=== PATIENT | male | born 1975 | race Caucasian/White ===

== ENCOUNTER 2016-12-25 21:08 | Emergency (ER) | payer SELFPAY ==
[~2016-12-25] VITALS: Ht 188 cm; Wt 107.0 kg
[~2016-12-25 21:08] MED LIST: LORT5TAB PO; Z.0.NO CURRENT MEDS
[2016-12-25 21:15] VITALS: BP 144/79; PULSE 91; RESP 18; TEMP 98.4; O2SAT 96
--- NOTE | 2016-12-25 21:35 | PD ---
HPI Chief Complaint: Fall Time Seen by Provider: 21:35 Travel History International Travel<30 days: No Contact w/Intl Traveler<30days: No Traveled to known affect area: No History of Present Illness HPI 41-year-old male is brought to the emergency department by EMS for evaluation of fall. The patient states that he sat in a chair at a [employer] store and the leg of the chair broke causing him to fall backward onto the ground. States that he landed on his lower back and attempted to catch himself with his left hand. States that he did hit the back of his head on the tile floor. Denies loss of consciousness. States that he is having pain in his neck, lower back, left thumb and left heel. States he is having a tingling sensation in his lower back. Denies any numbness or tingling in the extremities, weakness, headache, dizziness, nausea, vomiting, saddle anesthesia, bowel or bladder incontinence. Denies any prior back injuries or problems. Denies any medical conditions. No other complaints. [facility] Past Medical History Medical History: Denies Significant Hx Tetanus Vaccination: < 5 Years Influenza Vaccination: No Past Surgical History Surgical History: No Previous Surgery Social History Alcohol Use: No Tobacco Use: Yes Substance Use: No Allergies-Medications (Allergen,Severity, Reaction): Coded Allergies: No Known Allergies (Verified , 11/19/08) Reported Meds & Prescriptions Reported Meds & Active Scripts Active No Active Prescriptions or Reported Medications Review of Systems Except as stated in HPI: all other systems reviewed are Neg Physical Exam Narrative GENERAL: Well-nourished and well-developed pleasant male patient in no acute distress. Backboarded with cervical collar in place. SKIN: No obvious lacerations or abrasions noted. HEAD: Normocephalic and atraumatic. No bony point tenderness or crepitus noted throughout the scalp and facial bones. EYES: No scleral icterus, injection, or drainage. PERRLA. EOMI. No hyphema present. ENT: No septal hematoma or hemotympanum noted. Oropharynx is clear and the airway is patent. NECK: Supple and the trachea is midline. No obvious deformities, crepitus, or midline tenderness noted. CARDIOVASCULAR: Regular rate and rhythm. RESPIRATORY: Breath sounds are equal bilaterally with no accessory muscle use, wheezing, rhonchi, or crackles. GASTROINTESTINAL: Abdomen is soft, non-tender, and nondistended. MUSCULOSKELETAL: Slight swelling to left thumb MCP, full range of motion. Tenderness to palpation of left heel, no swelling or deformity. No obvious deformities, cyanosis, or ecchymosis is present throughout the upper and lower extremities. Patient has full range of motion without any signs of neurovascular compromise. Strength 5/5 upper and lower extremities equal bilaterally. BACK: Midline lumbar spine tenderness to palpation. No obvious deformities, bony point tenderness, or crepitus noted throughout the thoracic and lumbar vertebrae. NEUROLOGICAL: Awake, alert, and oriented. Normal speech and gait. Cranial nerves are grossly intact. Data Data Last Documented VS Vital Signs Date Time Temp Pulse Resp B/P Pulse Ox O2 Delivery O2 Flow Rate FiO2 12/25/16 21:20 92 18 96 12/25/16 21:15 98.4 144/[address] Brain W/O Iv Contrast(Rout) (12/25/16 21:33) Ct Lumb Spine W/O Contrast (12/25/16 21:33) Ct Cerv Spine W/O Contrast (12/25/16 21:33) Foot, Complete ([id number]) (12/25/16 21:33) Hand, Complete ([id number]) (12/25/16 21:33) Acetamin-Hydrocod 325-5 Mg ([place] 5-325 (12/25/16 21:45) MDM Medical Decision Making Medical Screen Exam Complete: Yes Emergency Medical Condition: Yes Differential Diagnosis Contusion versus muscle strain versus muscle spasm versus discogenic pain versus fracture Narrative Course 41-year-old male is brought to the emergency department by EMS for evaluation of fall from a chair while at a [employer] store. Patient is afebrile, vital signs are stable. He is complaining of pain in his neck, back, left thumb and left heel. No focal neurologic deficits. CT and x-ray imaging as been ordered and is pending. Patient is administered Lortab 5325 milligrams orally for his pain. X-ray of the left foot is negative for any acute abnormalities. X-ray left hand is negative for any acute abnormalities. The patient will be signed out to my attending physician Dr. Clay pending results of CT imaging. Scripts No Active Prescriptions or Reported Meds Bhavna Dove Dec 25, 2016 21:35
[2016-12-25] MEDS ORDERED: ACETAMINOPHEN/HYDROcodone 325 MG/5 MG TAB PO ONE (21:45)
--- NOTE | 2016-12-25 22:20 | RADRPT ---
EXAM DATE/TIME: 12/25/2016 21:43 [facility] COMPARISON: No previous studies available for comparison. INDICATIONS : Fall out of lawn chair. MEDICAL HISTORY : None. SURGICAL HISTORY : None. ENCOUNTER: Initial ACUITY: 1 day PAIN SCORE: 0/10 LOCATION: Left foot FINDINGS: Three views of the left foot demonstrate no fracture or dislocation. The Lisfranc joint appears intac t. Mineralization is within normal limits and there is no significant arthropathy. No soft tissue abn ormality or radiopaque foreign body is identified. CONCLUSION: No acute abnormality is identified. Clint Hernandez MD on December 25, 2016 at 22:17 Board Certified Radiologist. This report was verified electronically.
--- NOTE | 2016-12-25 22:24 | RADRPT ---
EXAM DATE/TIME: 12/25/2016 21:49 [facility] COMPARISON: No previous studies available for comparison. INDICATIONS : Fall. MEDICAL HISTORY : None. SURGICAL HISTORY : None. ENCOUNTER: Initial ACUITY: 1 day PAIN SCORE: 0/10 LOCATION: Left hand FINDINGS: Three views of the left hand demonstrate no fracture or dislocation. Mineralization is within normal limits and there is no significant arthropathy. No soft tissue abnormality or radiopaque foreign body is identified. CONCLUSION: No acute abnormality is identified. Clint Hernandez MD on December 25, 2016 at 22:21 Board Certified Radiologist. This report was verified electronically.
--- NOTE | 2016-12-25 23:05 | PD ---
Data Data Last Documented VS Vital Signs Date Time Temp Pulse Resp B/P Pulse Ox O2 Delivery O2 Flow Rate FiO2 12/25/16 21:20 92 18 96 12/25/16 21:15 98.4 144/[address] Brain W/O Iv Contrast(Rout) (12/25/16 21:33) Ct Lumb Spine W/O Contrast (12/25/16 21:33) Ct Cerv Spine W/O Contrast (12/25/16 21:33) Foot, Complete ([id number]) (12/25/16 21:33) Hand, Complete ([id number]) (12/25/16 21:33) Acetamin-Hydrocod 325-5 Mg ([place] 5-325 (12/25/16 21:45) MDM Medical Record Reviewed: Yes Supervised Visit with GENOVEVA: No Interpretation(s) Last Impressions Lumbar Spine CT 12/25/162132 Signed Impressions: Service Date/Time: Sunday, December 25, 2016 22:57 - CONCLUSION: Intact lumbar spine. Mild degenerative changes at L4/L5 and L5/S1 as above. Clint Sanchez MD Head CT 12/25/162132 Signed Impressions: Service Date/Time: Sunday, December 25, 2016 22:54 - CONCLUSION: No bleed or other acute intracranial abnormality demonstrated. Chronic-appearing sinus disease. Clint Sanchez MD Hand X-Ray 12/25/162132 Signed Impressions: Service Date/Time: Sunday, December 25, 2016 21:49 - CONCLUSION: No acute abnormality is identified. Clint Hernandez MD Foot X-Ray 12/25/162132 Signed Impressions: Service Date/Time: Sunday, December 25, 2016 21:43 - CONCLUSION: No acute abnormality is identified. Clint Hernnadez MD Cervical Spine CT 12/25/162132 Signed Impressions: Service Date/Time: Sunday, December 25, 2016 22:54 - CONCLUSION: 1. No fracture or subluxation of the cervical spine. 2. Suspected inferiorly extruded right paracentral disc fragment at C3/C4, age-indeterminate. Associated spinal and right foraminal stenosis appears to be mild. 3. Chronic appearing degenerative changes otherwise, as above. Clint Sanchez MD Narrative Course During the course of the patients emergency department visit, the patients history, examination, and differential diagnosis were reviewed with the patient. The patient was initially evaluated by Bhavna, please see her complete history and physical. The patient's case was checked out to me at the conclusion of her shift pending CT scans being resulted. The patient was initially provided Lortab for pain. Radiology studies were reviewed and remarkable for a [id number] x-ray that showed no acute abnormality. CT scan of the brain showed no acute abnormality. CT scan of the C-spine shows no fracture or subluxation of the cervical spine , suspected inferiorly extruded right paracentral disc fragment at C3 for age indeterminate, associated spinal and right foraminal stenosis appears to be mild , chronic-appearing degenerative changes. CT scan of lumbar spine shows mild degenerative changes at L4-L5 and L5-S1. No other acute abnormality. The patient will be provided a prescription for Naprosyn and Flexeril. The patient is resting comfortably and feels better, is alert and in no distress. The patients results and examination findings were discussed with the patient. The repeat examination is unremarkable and benign. The history, exam, diagnostic testing, and current condition do not suggest any significant pathology to warrant further testing, continued ED treatment, admission, or surgical evaluation at this point. The vital signs have been stable. The patient does not have uncontrollable pain, intractable vomiting, or other significant symptoms. The patient's condition is stable and appropriate for discharge. The patient will pursue further outpatient evaluation with a primary care physician or other designated or consulting physician as indicated in the discharge instructions. The patient expressed understanding and was agreeable with this plan. Diagnosis Primary Impression: Degenerative disc disease, cervical Additional Impression: Degenerative disc disease, lumbar Referrals: Sergei Crain MD 2 weeks Primary Care Physician 2 days Patient Instructions: Back Pain (ED), General Instructions Additional Instruction: Follow-up with the neurosurgeon on-call for additional evaluation if he continued to have symptoms. Med/Other Pt SpecificInfo: Prescription(s) given Scripts Cyclobenzaprine (Flexeril)5 Mg Tab5 Mg PO TID PRN (SPASM) #15 TAB Ref 0 Prov:Susan Clay MD 12/25/[address] (EC-Naprosyn)500 Mg [id number] Mg PO BID PRN (PAIN GREATER THAN 5) # 10 TAB Ref 0 Prov:Susan Clay MD 12/25/16 Disposition: 01 DISCHARGE HOME Condition: Stable Susan Clay MD Dec 25, 2016 23:05
--- NOTE | 2016-12-25 23:15 | RADRPT ---
EXAM DATE/TIME: 12/25/2016 22:54 [facility] COMPARISON: No previous studies available for comparison. INDICATIONS : Fell from chair. Lower back and neck pain. RADIATION DOSE: 56.73 CTDIvol (mGy) MEDICAL HISTORY : None SURGICAL HISTORY : None. ENCOUNTER: Initial ACUITY: 1 day PAIN SCALE: 6/10 LOCATION: cranial TECHNIQUE: Multiple contiguous axial images were obtained of the head. Using automated exposure control and adj ustment of the mA and/or kV according to patient size, radiation dose was kept as low as reasonably a chievable to obtain optimal diagnostic quality images. FINDINGS: CEREBRUM: The ventricles are normal for age. No evidence of midline shift, mass lesion, hemorrhage or acute in farction. No extra-axial fluid collections are seen. POSTERIOR FOSSA: The cerebellum and brainstem are intact. The 4th ventricle is midline. The cerebellopontine angle i s unremarkable. EXTRACRANIAL: The visualized portion of the orbits is intact. There is mucoperiosteal thickening of the visualized ethmoid air cells. SKULL: The calvaria is intact. No evidence of skull fracture. CONCLUSION: No bleed or other acute intracranial abnormality demonstrated. Chronic-appearing sinus disease. Clint Sanchez MD on December 25, 2016 at 23:12 Board Certified Radiologist. This report was verified electronically.
--- NOTE | 2016-12-25 23:24 | RADRPT ---
EXAM DATE/TIME: 12/25/2016 22:54 [facility] COMPARISON: No previous studies available for comparison. INDICATIONS : Fell from chair. Lower back and neck pain. RADIATION DOSE: 21.62 CTDIvol (mGy) MEDICAL HISTORY : None SURGICAL HISTORY : None. ENCOUNTER: Initial ACUITY: 1 day PAIN SCALE: 4/10 LOCATION: neck TECHNIQUE: Volumetric scanning of the cervical spine was performed. Multiplanar reconstructions in the sagittal, coronal and oblique axial planes were performed. Using automated exposure control and adjustment o f the mA and/or kV according to patient size, radiation dose was kept as low as reasonably achievable to obtain optimal diagnostic quality images. FINDINGS: VERTEBRAE: Normal vertebral body height. ALIGNMENT: No evidence of subluxation. C2-C3: The bony spinal canal is normal in size. No evidence of disc bulge or herniation. The neural forami na are bilaterally patent. C3-C4: There is mild disc space narrowing. The CT suggests the possibility of a inferiorly extruded right pa racentral fragment of the C3/C4 disc. There is however only mild spinal and right foraminal stenosis. C4-C5: The disc has mild loss of height. There is mild uncovertebral and facet osteoarthritis. No significan t foraminal or spinal stenosis. C5-C6: The disc as mild loss of height. There is moderate bilateral uncovertebral and facet osteoarthritis. Mild foraminal stenosis, mainly on the right. C6-C7: The disc has mild loss of height. There is mild bilateral uncovertebral and facet osteoarthritis. No significant foraminal or spinal stenosis demonstrated. C7-T1: The bony spinal canal is normal in size. No evidence of disc bulge or herniation. The neural forami na are bilaterally patent. CONCLUSION: 1. No fracture or subluxation of the cervical spine. 2. Suspected inferiorly extruded right paracentral disc fragment at C3/C4, age-indeterminate. Associa mike spinal and right foraminal stenosis appears to be mild. 3. Chronic appearing degenerative changes otherwise, as above. Clint Sanchez MD on December 25, 2016 at 23:18 Board Certified Radiologist. This report was verified electronically.
--- NOTE | 2016-12-25 23:27 | RADRPT ---
EXAM DATE/TIME: 12/25/2016 22:57 [facility] COMPARISON: No previous studies available for comparison. INDICATIONS : Fell from chair. Lower back and neck pain. RADIATION DOSE: 37.49 CTDIvol (mGy) MEDICAL HISTORY : None SURGICAL HISTORY : None. ENCOUNTER: Initial ACUITY: 1 day PAIN SCALE: 6/10 LOCATION: Lumbar TECHNIQUE: Volumetric scanning of the lumbar spine was performed. Multiplanar reconstructions in the sagittal, coronal and oblique axial planes were performed. Using automated exposure control and adjustment of the mA and/or kV according to patient size, radiation dose was kept as low as reasonably achievable t o obtain optimal diagnostic quality images. FINDINGS: VERTEBRAE: Normal vertebral body height. ALIGNMENT: No evidence of subluxation. T12-L1: The thecal sac has a normal diameter. No evidence of disc bulge or protrusion. The neural foramina are patent bilaterally. L1-L2: The thecal sac has a normal diameter. No evidence of disc bulge or protrusion. The neural foramina are patent bilaterally. L2-L3: The thecal sac has a normal diameter. No evidence of disc bulge or protrusion. The neural foramina are patent bilaterally. L3-L4: The thecal sac has a normal diameter. No evidence of disc bulge or protrusion. The neural foramina are patent bilaterally. L4-L5: The disc as slightly loss of height. There is diffuse bulging of the disc annulus and mild bilateral facet osteoarthritis with thickening of the ligamentum flavum. There is associated mild spinal stenos is, right lateral recess slightly worse than left. There is mild foraminal stenosis as well, also fred nly on the right. L5-S1: Mild bulging of the disc annulus and mild to moderate bilateral facet osteoarthritis noted. No signif icant foraminal or spinal stenosis. CONCLUSION: Intact lumbar spine. Mild degenerative changes at L4/L5 and L5/S1 as above. Clint Sanchez MD on December 25, 2016 at 23:24 Board Certified Radiologist. This report was verified electronically.
[2016-12-25] MEDS ORDERED: CYCL5TAB PO (23:47)
[2016-12-25] MEDS ORDERED: EC-N500T PO (23:47)
[2016-12-26] MEDS ORDERED: KETOROLAC TROMETHAMINE 60 MG/2 ML (IM) VIAL IM ONE
[2016-12-26 01:02] VITALS: BP 148/89; PULSE 80; RESP 18; TEMP 98.1; O2SAT 100
== END 2016-12-26 01:03 | disposition home or self-care (01) ==
LOC: NEPE 21:08
DX: M50.31 Other cervical disc degeneration, high cervical region (principal); M51.37 Other intervertebral disc degeneration, lumbosacral region; M51.36 Other intervertebral disc degeneration, lumbar region; M79.645 Pain in left finger(s); M79.672 Pain in left foot; R20.2 Paresthesia of skin; Z72.0 Tobacco use
CPT/HCPCS: 70450; 72125; 72131; 73130; 73630; 99285